=== PATIENT | male | born 1985 | race Hispanic/Latino ===

== ENCOUNTER 2022-01-31 14:54 | Emergency (ER) | payer SELFPAY ==
[~2022-01-31] VITALS: Ht 180.3 cm; Wt 136.1 kg
== END 2022-01-31 18:31 | disposition home or self-care (01) ==
LOC: ER 15:16
DX: I87.8 Other specified disorders of veins (principal); G89.29 Other chronic pain; Z86.73 Personal history of transient ischemic attack (TIA), and cerebral infarction without residual deficits; Z95.810 Presence of automatic (implantable) cardiac defibrillator
CPT/HCPCS: 99282